=== PATIENT | male | born 1965 | race Caucasian/White ===

== ENCOUNTER → 2017-10-29 | Day surgery (SDC) | payer OTHER ==
[2017-10-26 15:04] VITALS: Ht 182.9 cm; Wt 100.9 kg
[~2017-10-29] VITALS: Ht 182.9 cm; Wt 100.9 kg
[~2017-10-29] MED LIST: ATROPINE SULFATE 0.1 MG/ML 5ML SYR IV PRN; AZEL30SP NAE; CLINDAMYCIN PHOS 150 MG/ML 2 ML VIAL IV SCH; DEXAMETHASONE SOD INJ 4 MG/ML VIAL ONE; DOXA8TAB2 PO; EpHEDrine SULFATE INJ 50 MG/ML AMP IV PRN; FENTANYL CITRATE INJ 50 MCG/1 ML 2 ML VIAL ONE; HYDROmorphone INJ 0.5 MG/0.5 ML SYR ONE; HYDROmorphone INJ 1 MG/ML SYR ONE; KETOROLAC TROMETHAMINE 30 MG/ML VIAL IV. PRN; LACTATED RINGER'S 1000ML 1,000 ML IV SCH; LIDOCAINE HCL 2% 2 ML VIAL (20MG/ML) ONE; LOSA50TA36 PO; MIDAZOLAM HCL 1 MG/ML 2ML VIAL ONE; MULT-1027 PO; NURSING VERBAL MED ORDER ONE; ONDANSETRON INJ 2 MG/ML 2 ML VIAL IV PRN; ONDANSETRON INJ 2 MG/ML 2 ML VIAL ONE; OXYCODONE/ACETAMINOPHEN 5-325 TAB PO PRN; PHENYLEPHRINE 100MCG/ML 5ML SYR IV PRN; PROPOFOL IV EMULSION 10 MG/ML 20 ML VIAL IV ONE; SERT-234 PO; SODIUM CHLORIDE 0.9% 1000ML 1,000 ML IV SCH; TEST5GEL TOP
--- NOTE | 2017-10-29 06:49 | History & Physical Bridge Note ---
H&P Re-Evaluation Bridge Note: I have examined the patient, reviewed the History & Physical and in the interval since the performance of the History & Physical I have noted the following changes of clinical significance: consent reviewed.No changes noted
--- NOTE | 2017-10-29 06:52 | Discharge Instructions ---
Discharge Instructions Date of Service Oct 29, 2017. Visit Reason for Visit: Left Knee Quad Tendon Rupture Discharge Discharge Diagnosis / Problem: same Discharge Goals Goal(s): Decrease discomfort, Improve function, Increase independence Medications Stopped Medications Name(s): na Restart Stopped Medication(s): resume all scripts as directed Activity Recommendations Activity Limitations: as noted below Lifting Limitations: until after follow-up appointment Exercise/Sports Limitations: until after follow-up appointment May Resume Sexual Activity: when tolerated Shower/Bathe: keep incision dry Driving or Machine Use: Weightbearing Status: Left non-weightbearing Anesthesia . Post Anesthesia Instructions: If you have had General Anesthesia or IV Sedation: * Do not drive today. * Resume driving when surgeon permits. * Do not make important decisions or sign legal documents today. * Call surgeon for: 1. Temperature elevations greater than 101 degrees F. 2. Uncontrollable pain. 3. Excessive bleeding. 4. Persistent nausea and vomiting. 5. Medication intolerance (nausea, vomiting or rash). * For nausea and vomiting use only clear liquids such as: tea, soda, bouillon until nausea subsides, then gradually increase diet as tolerated. * If you have any concerns or questions, call your surgeon's office. If physician is unavailable and it is an emergency, call 911 or go to the nearest emergency room. . Instructions / Follow-Up Instructions / Follow-Up DIET: * Resume previous diet. MEDICATIONS: * Please take your prescriptions as instructed at your pre-op appointment and/ or see medication discharge instructions listed above. * If concerns develop, call your physician's office at . SPECIAL CARE INSTRUCTIONS: * Ice/Elevate as instructed. * Keep dressing clean, dry, intact. * Your surgical extremity may be discolored due to prepping agents used on the skin. A bluish-green tint is a normal variant and should not cause alarm. Call your doctor at [phone] if: * Temperature above 101 degrees * Pain not relieved by pain medicine ordered * There is increased drainage or redness from any incision * You have any unanswered questions, problems or concerns. FOLLOW UP VISIT: * If not already scheduled, please call the office at to schedule a follow-up appointment. Diet Recommendations Recommended Home Diet: resume previous diet Procedures Procedures Performed: repair extensor mechanism rupture Pending Studies Studies pending at discharge: no List of pending studies: na Medical Emergencies . Who to Call and When: Medical Emergencies: If at any time you feel your situation is an emergency, please call 911 immediately. . Non-Emergent Contact Non-Emergency issues call your: Specialist Call Non-Emergent contact if: temperature is above 101.5, wound has increased drainage, wound has increased redness, wound has increased pain . . "Provider Documentation" section prepared by Kel Sy. .
--- NOTE | 2017-10-29 07:50 | [facility] Post Operative Brief Note ---
Immediate Operative Summary Operative Date Oct 29, 2017. Pre-Operative Diagnosis Left Knee Quadriceps Tendon Rupture/retinacylar tears Post-Operative Diagnosis Same Procedure(s) Performed Left Knee Open Quadriceps Tendon Repair/retinacular repairs Surgeon Dr. Sy Pharmacist Apprentice Surgeon(s) Adelfo Irizarry, Fellow; Efraín Aguilera PA-C Estimated Blood Loss Trace Findings complete extensor mechanism tear proximal Fluids (cc crystalloids) 750cc Specimens None Drains none Anesthesia LMA Complication(s) None Disposition Recovery Room / PACU
--- NOTE | 2017-10-29 08:11 | OPERATIVE REPORT ---
DATE OF OPERATION: 10/29/2017 PREOPERATIVE DIAGNOSIS: Quad tendon rupture with extensor mechanism, medial retinacular tears. POSTOPERATIVE DIAGNOSIS: Same. OPERATION PERFORMED: Repair primary quad tendon and medial and lateral retinaculum/complete extensor mechanism, left knee. SURGEON: Dr. Sy. SETTER OFF: Otis Irizarry, fellow. SECOND SETTER OFF: Juan Carlos Aguilera PA-C. PERIOPERATIVE SITUATION: Medically cleared male who fell injuring his knee, cannot do a straight leg raise, has a 40 degree extensor lag. He has a palpable defect. He is now roughly 2 weeks post injury. It was discussed with him in detail all risks and complications. He agreed to proceed with procedure. OPERATION AND FINDINGS: PROCEDURE: The patient appropriately identified, site verified, consent verified, 900 mg clindamycin confirmed as being given. The left lower extremity was prepped and draped in usual routine fashion. The tourniquet was applied and inflated to 275 mmHg for a total of approximately 30 minutes. A midline exposure utilized medially. The joint was entered once the subcutaneous tissue was opened and a large hemarthrosis and fluid collection was evacuated. The tendon tear was identified as well as the medial and lateral retinacular tears. This was all freshened up and then the bone debrided of any soft tissue and then two 2.9 JuggerKnot anchors placed. They were double loaded and then passed through the tendon full thickness, #2 Vicryl was then placed in the medial and lateral retinaculum and these were tied closed. This repaired the mechanism nicely. The tendon was then repaired to the patella with the JuggerKnot sutures, these were tied. Once these were tied they were then passed proximally with 2 of the limbs and distally creating a tension band with 2 of the limbs over the repair site. An excellent repair was obtained, it was watertight. The wound was irrigated, tourniquet deflated, no major bleeding encountered. The wound was then closed with 2-0 Vicryl and 2-0 plain for the subcutaneous layer and stainless steel clips for skin. Appropriate soft tissue dressing and a hinged knee immobilizer brace locked at 0 degrees was applied. ESTIMATED BLOOD LOSS: Trace. CRYSTALLOID: 700 mL. No pathology pending. DVT prophylaxis with Lovenox. I attest to the content of the Intraoperative Record and any orders documented therein. Any exception s are noted below.
[2017-10-29] MEDS: HYDROmorphone INJ 2 MG/ML SYR/VIAL IV PRN ×6 (08:14→08:46)
[2017-10-29 09:26] VITALS: TEMP 37.3
[2017-10-29 10:10] VITALS: BP 141/83; PULSE 96; O2SAT 96
--- NOTE | 2017-10-29 10:16 | Anesthesia Progress Nt - [facility] ---
Anesthesia Post Op Note Date & Time Oct 29, 2017 at 10:15 Vital Signs Pain Intensity: 8 Vital Signs Past 12 Hours Date Time Temp Pulse Resp B/P (MAP) Pulse Ox O2 Delivery O2 Flow Rate FiO2 10/29/17 10:10 96 18 141/83 (102) 96 10/29/17 09:26 37.3 86 18 153/53 (86) 91 Room Air 10/29/17 09:23 88 14 91 10/29/17 09:23 88 14 10/29/17 09:21 151/84 10/29/17 09:18 37.2 93 Room Air 10/29/17 09:18 86 21 92 10/29/17 09:18 87 21 10/29/17 09:17 88 15 93 10/29/17 09:17 88 15 10/29/17 09:16 150/90 10/29/17 09:12 88 22 97 10/29/17 09:12 88 22 10/29/17 09:11 141/93 10/29/17 09:07 91 16 10/29/17 09:07 90 16 159/86 93 10/29/17 09:02 88 15 10/29/17 09:02 87 15 142/96 97 10/29/17 08:57 91 15 10/29/17 08:57 91 15 98 10/29/17 08:56 134/105 10/29/17 08:52 87 17 10/29/17 08:52 86 17 97 10/29/17 08:51 146/97 10/29/17 08:50 83 18 98 10/29/17 08:50 85 18 10/29/17 08:46 125/95 10/29/17 08:45 86 12 92 10/29/17 08:45 87 12 10/29/17 08:41 155/91 10/29/17 08:40 88 16 90 10/29/17 08:40 88 16 10/29/17 08:36 138/97 10/29/17 08:35 86 18 10/29/17 08:35 85 18 94 10/29/17 08:31 141/97 10/29/17 08:30 87 16 92 10/29/17 08:30 87 16 10/29/17 08:26 144/93 10/29/17 08:25 90 23 10/29/17 08:25 89 23 95 12/22/17 08:21 142/93 10/29/17 08:20 86 17 95 10/29/17 08:20 87 17 10/29/17 08:16 150/94 10/29/17 08:15 86 16 10/29/17 08:15 87 16 97 10/29/17 08:11 142/98 10/29/17 08:10 86 15 97 10/29/17 08:10 88 15 10/29/17 08:06 143/91 10/29/17 08:05 99 17 10/29/17 08:05 99 17 97 10/29/17 08:02 140/98 10/29/17 08:00 36.8 83 16 140/98 95 Mask 6 10/29/17 06:42 36.8 89 16 138/94 (109) 94 Room Air Notes Mental Status: alert / awake / arousable, participated in evaluation Pt Amnestic to Procedure: Yes Nausea / Vomiting: adequately controlled Pain: adequately controlled Airway Patency, RR, SpO2: stable & adequate BP & HR: stable & adequate Hydration State: stable & adequate Anesthetic Complications: no major complications apparent
== END | disposition home or self-care (01) ==
LOC: X.SURG 06:32
PROVIDERS: ATTEND Physical Medicine & Rehabilitation Sports Medicine
DX: S86.902A Unspecified injury of unspecified muscle(s) and tendon(s) at lower leg level, left leg, initial encounter (principal); W01.0XXA Fall on same level from slipping, tripping and stumbling without subsequent striking against object, initial encounter; I10 Essential (primary) hypertension; F41.9 Anxiety disorder, unspecified; K21.9 Gastro-esophageal reflux disease without esophagitis; K44.9 Diaphragmatic hernia without obstruction or gangrene; N40.0 Benign prostatic hyperplasia without lower urinary tract symptoms; Z88.0 Allergy status to penicillin; Z91.041 Radiographic dye allergy status; M19.90 Unspecified osteoarthritis, unspecified site

== ENCOUNTER → 2017-12-06 | Outpatient (CLI) | payer OTHER ==
[~2017-12-06] MED LIST changes: -ATROPINE SULFATE 0.1 MG/ML 5ML SYR IV PRN; -CLINDAMYCIN PHOS 150 MG/ML 2 ML VIAL IV SCH; -DEXAMETHASONE SOD INJ 4 MG/ML VIAL ONE; -EpHEDrine SULFATE INJ 50 MG/ML AMP IV PRN; -FENTANYL CITRATE INJ 50 MCG/1 ML 2 ML VIAL ONE; -HYDROmorphone INJ 0.5 MG/0.5 ML SYR ONE; -HYDROmorphone INJ 1 MG/ML SYR ONE; -KETOROLAC TROMETHAMINE 30 MG/ML VIAL IV. PRN; -LACTATED RINGER'S 1000ML 1,000 ML IV SCH; -LIDOCAINE HCL 2% 2 ML VIAL (20MG/ML) ONE; -MIDAZOLAM HCL 1 MG/ML 2ML VIAL ONE; -NURSING VERBAL MED ORDER ONE; -ONDANSETRON INJ 2 MG/ML 2 ML VIAL IV PRN; -ONDANSETRON INJ 2 MG/ML 2 ML VIAL ONE; -OXYCODONE/ACETAMINOPHEN 5-325 TAB PO PRN; -PHENYLEPHRINE 100MCG/ML 5ML SYR IV PRN; -PROPOFOL IV EMULSION 10 MG/ML 20 ML VIAL IV ONE; -SODIUM CHLORIDE 0.9% 1000ML 1,000 ML IV SCH
== END | disposition home or self-care (01) ==
LOC: C.RDSM 19:17
PROVIDERS: ATTEND Physical Medicine & Rehabilitation Sports Medicine
DX: S89.90XA Unspecified injury of unspecified lower leg, initial encounter (principal); S76.112A Strain of left quadriceps muscle, fascia and tendon, initial encounter; X58.XXXA Exposure to other specified factors, initial encounter